=== PATIENT | male | born 1990 | race Caucasian/White ===

== ENCOUNTER → 2024-07-26 | Outpatient (CLI) | payer OTHER ==
[~2024-07-26] MED LIST: ACETAMINOPHEN500 MG PO; AMOCLA875 PO; Zofran Odt4 MG PO
== END | disposition home or self-care (01) ==
LOC: LAB SHORT 12:46
DX: Z13.818 Encounter for screening for other digestive system disorders (principal)
CPT/HCPCS: 87338